=== PATIENT | male | born 1960 | race Caucasian/White ===

== ENCOUNTER 2016-04-29 10:21 | Outpatient (CLI) | payer BC ==
[~2016-04-29] VITALS: Ht 185.4 cm; Wt 112.0 kg
[2016-04-29 10:32] VITALS: BP 129/77
[2016-04-29] MEDS ORDERED: DILT240C53 PO (10:36)
[2016-04-29] MEDS ORDERED: ATOR20TA66 PO (10:36)
[2016-04-29 11:01] LABS: BASOPHILS % (AUTO) 0 % (0-10); EOSINOPHILS # (AUTO) 0.2 10^3/uL (0.0-0.3); EOSINOPHILS % (AUTO) 3 % (0-10); LYMPHOCYTES # (AUTO) 2.2 X 10^3 (1.0-4.0); LYMPHOCYTES % (AUTO) 37 % (12-44); MEAN CORPUSCULAR HEMOGLOBIN 34 PG (25-34); MEAN CORPUSCULAR HGB CONC 37 G/DL (32-36); MEAN CORPUSCULAR VOLUME 94 FL (80-99); MEAN PLATELET VOLUME 10.6 FL (7.4-10.4); MONOCYTES # (AUTO) 0.5 X 10^3 (0.0-1.0); MONOCYTES % (AUTO) 8 % (0-12); NEUTROPHILS # (AUTO) 3.1 X 10^3 (1.8-7.8); NEUTROPHILS % (AUTO) 52 % (42-75); PLATELET COUNT 151 10^3/uL (130-400); RED BLOOD COUNT 4.57 10^6/uL (4.35-5.85); RED CELL DISTRIBUTION WIDTH 11.6 % (10.0-14.5)
[2016-05-05] MEDS ORDERED: HYDR-3730 PO (13:30)
== END 2016-04-29 10:50 | disposition home or self-care (01) ==
LOC: PREOP 10:21
PROVIDERS: ATTEND Surgery Pediatric Surgery
DX: Z01.812 Encounter for preprocedural laboratory examination (principal); Z11.2 Encounter for screening for other bacterial diseases; K43.2 Incisional hernia without obstruction or gangrene
CPT/HCPCS: 36415; 85025; 87081

== ENCOUNTER 2016-05-05 08:18 | Day surgery (SDC) | payer BC ==
[~2016-05-05] VITALS: Ht 185.4 cm; Wt 112.0 kg
[~2016-05-05 08:18] MED LIST: ATOR20TA66 PO; DILT240C53 PO
--- OUTSIDE RECORDS SUMMARY | 2016-05-05 08:35 | XMS REPORT | Continuity of Care Document ---
Author Author Interface Organization Interface Address Unknown Phone Unavailable Problems Problem Status Onset Date Classification Date Reported Comments Source Medications Medication Details Route Status Patient Instructions Ordering Provider Order Date Source Allergies, Adverse Reactions, Alerts Substance Category Reaction Severity Reaction type Status Date Reported Comments Source Immunizations Immunization Date Given Site Status Last Updated Comments Source Results Order Name Results Value Reference Range Date Interpretation Comments Source Vital Signs Vital Sign Value Date Comments Source Encounters Location Location Details Encounter Type Encounter Number Reason For Visit Attending Provider ADM Date DC Date Status Source [facility] [id number] Outpatient [id number] Mary Ramos 03/28/2013 Active [facility] [id number] Outpatient [id number] Mary Ramos 04/06/2013 Active [facility], [facility] Procedures Procedure Code Date Perfomer Comments Source
[2016-05-05 08:40] VITALS: BP 139/84
[2016-05-05] MEDS ORDERED: morphine INJ 10 MG/ML 1ML (SYR OR VIAL) IV PRN (09:00)
[2016-05-05] MEDS ORDERED: ONDANSETRON 4 MG/2 ML (SDV) Z0FRAN IV PRN (09:00)
[2016-05-05] MEDS ORDERED: PROMETHAZINE INJ 25 MG/ML (PHENERGAN) AMP IV PRN (09:00)
[2016-05-05] MEDS ORDERED: MIDAZOLAM 2 MG/2 ML (VERSED) VIAL ONE (09:36)
[2016-05-05] MEDS ORDERED: fentaNYL INJECTION 100 MCG/2 ML AMP ONE ×3 (09:36→13:02)
[2016-05-05] MEDS ORDERED: NS (IVPB) 50 ML ONE (09:41)
[2016-05-05] MEDS ORDERED: ceFAZolin 1,000 MG (ANCEF) VIAL ONE (09:41)
[2016-05-05] MEDS ORDERED: ceFAZolin 1 GM/NS 50 ML IVPB IV ONE ×2 (09:45)
[2016-05-05] MEDS: LACTATED RINGERS 1,000 ML IV PRN ×3 (09:46→13:30)
[2016-05-05] MEDS ORDERED: BUP/EPI 0.5% 1:200,000 (SENSORCAINE) 30 ML VIAL ONE (09:50)
[2016-05-05] MEDS ORDERED: SEVOFLURANE (ULTANE) 15 ML INHAL SOLN ONE ×2 (10:28→13:34)
[2016-05-05] MEDS ORDERED: ROCURONIUM 50 MG/5 ML (ZEMURON) VIAL IV ONE (10:28)
[2016-05-05] MEDS ORDERED: ONDANSETRON 4 MG/2 ML (SDV) Z0FRAN ONE (10:28)
[2016-05-05] MEDS ORDERED: LACTATED RINGERS 1,000 ML IV ONE ×3 (10:28→13:34)
[2016-05-05] MEDS ORDERED: LIDOCAINE PF 2% 10 ML (XYLOCAINE) AMP ONE (10:28)
[2016-05-05] MEDS ORDERED: proPOfol 200 MG/20 ML (DIPRIVAN) VIAL IV ONE (10:28)
--- NOTE | 2016-05-05 13:26 | Progress Note-Pre Operative ---
Pre-Operative Progress Note H&P Reviewed The H&P was reviewed, patient examined and no changes noted. Date H&P Reviewed: May 05, 2016 Time H&P Reviewed: 11:00 Pre-Operative Diagnosis: ventral abdominal incisional hernia x3 ANTHONY SANDOVAL MD May 05, 2016 1:26 pm
--- NOTE | 2016-05-05 13:28 | Progress Note-Post Operative ---
Post-Operative Progess Note Pre-Operative Diagnosis ventral abdominal incisional hernia x3 Post-Operative Diagnosis same Post-Op Procedure Note Date of Procedure: May 05, 2016 Name of Procedure: ventral abdominal incisional hernia repair with mesh Anesthesia Type GET Estimated blood loss (mL): 150ml ANTHONY SANDOVAL MD May 05, 2016 1:28 pm
[2016-05-05] MEDS ORDERED: ACETAMINOPHEN 325 MG TABLET/CAPLET (TYLENOL) PO PRN (13:30)
[2016-05-05] MEDS ORDERED: morphine INJ 10 MG/ML 1ML (SYR OR VIAL) IVP PRN (13:30)
[2016-05-05] MEDS ORDERED: HYDROcodone/APAP 5 MG/325 MG (LORTAB) TAB PO ONE (13:30)
[2016-05-05] MEDS ORDERED: HYDR-3730 PO (13:30)
[2016-05-05] MEDS ORDERED: ONDANSETRON 4 MG/2 ML (SDV) Z0FRAN IVP PRN ×2 (13:30→14:00)
--- NOTE | 2016-05-05 13:30 | Discharge Inst-Surgical ---
D/C Lap Instructions-LORI New, Converted, or Re-Newed RX: RX on Chart Follow Up Appt in 2 weeks Activity as tolerated No driving for 24 hours No driving while on pain medications Incentive Spirometry use every 2 hours while awake Regular Diet Symptoms to Report: Fever over 101 degree F, Nausea/Vomiting Infection Signs and Symptoms to report: Increased redness, Foul odor of wound, Increased drainage Bathing instructions: May shower Operative Area Clean/Dry; Keep incision clean/dry If any problems/questions: Contact your physician or go to Emergency Room ANTHONY SANDOVAL MD May 05, 2016 1:30 pm
[2016-05-05] MEDS ORDERED: hydrALAZINE (APESOLINE) 20 MG/ML VIAL ONE (13:34)
[2016-05-05] MEDS: morphine INJ 10 MG/ML 1ML (SYR OR VIAL) IVP PRN ×2 (14:00→14:17)
[2016-05-05] MEDS ORDERED: MEPERIDINE (DEMEROL) INJ 50 MG/ML ONE (14:01)
[2016-05-05] MEDS: MEPERIDINE (DEMEROL) INJ 50 MG/ML IVP PRN ×2 (14:04→14:34)
[2016-05-05 14:55] VITALS: BP 151/84
[2016-05-05 15:25] VITALS: BP 154/91
[2016-05-05 16:35] VITALS: BP 152/91
[2016-05-05 16:50] VITALS: BP 152/91
[2016-05-05 17:10] VITALS: BP 152/91
--- NOTE | 2016-05-06 08:33 | OPERATIVE REPORT ---
PROCEDURE PHYSICIAN: ANTHONY DICKSON DATE OF PROCEDURE: 05/05/2016 ATTENDING PHYSICIAN: Dr. Gonzalez. PREOPERATIVE DIAGNOSIS: Ventral abdominal incisional hernias x3. POSTOPERATIVE DIAGNOSIS: Ventral abdominal incisional hernias x3. PROCEDURE: Open incisional hernia repair with mesh. SURGEON: Dr. Dickson. SUPPLY TECHNICIAN: Michael Tinoco APRN. ANESTHESIA: General endotracheal. ESTIMATED BLOOD LOSS: 150 mL. FINDINGS: 1. 3 hernias from a previous laparotomy incision which were all separate. 2. Thru a single incision all 3 hernias were connected and the repaired with mesh. DISPOSITION: The patient tolerated the procedure well. BRIEF HISTORY: Mr. Golden Martin is a 56-year-old male with pain and a bulge in the mid abdominal region, as well as the umbilicus. He reports that he has had this for approximately last 5 years. However, has grown larger over time and more painful. He has had an laparotomy incision in the for what he reports as an internal hernia or what he states is twisted intestines. Upon examination, he was found to have multiple symptomatic reducible abdominal incisional hernias. PROCEDURE: The patient was brought to the operating room, laid supine on the table. After adequate IV pain and sedative medications and conscious sedation anesthesia, the abdomen was prepped and draped as usual fashion. 0.5% Marcaine was then used to anesthetize the overlying skin supraumbilically. A crescent shaped skin incision then made using a 15 blade. The initial incisional hernia was in the area of the umbilicus which was dissected off of the umbilicus. We did this using electrocautery as well as Metzenbaum scissors. The hernia sac was then opened using Metzenbaum scissors and completely excised using electrocautery. There was only omentum in the hernia sac. At this time, and we are able to examine the abdomen from the peritoneal lining. Two other hernias were identified, one directly superior and one superolaterally. These hernias were connected using electrocautery. The entire defect now was approximately 5 cm in size. An area of good healthy fascia was then cleared off using electrocautery. A coated polypropylene mesh, which was 11.4 cm in diameter was then placed into the defect and transfacial sutures were placed in 4 quadrants. We then proceeded with 0 Prolene sutures concentrically around the fascial edges, as well as the mesh with 0 Prolene suture. Good hemostasis was observed. The umbilicus was then imbricated onto the fascia using 3-0 Vicryl interrupted sutures. The subcutaneous tissue was then reapproximated using 3-0 Vicryl interrupted sutures. Skin was closed using 4-0 Monocryl running subcuticular sutures. The wound was then cleaned and covered Dermabond. The umbilicus was then stuffed with tonsil sponges, followed by 4 x 4 gauze, followed by large OpSite. The patient tolerated the procedure well. We will start IV and oral pain medication as well as a clear liquid diet. Once he is tolerating clears, has good pain control with oral pain medications and ambulating well, we will discharge him home. He is to do no heavy lifting or exertion for the next 6 weeks. He also will be instructed to wear abdominal binder at all times for the next 2 weeks. Job ID: [id number] Dictated Date: 05/05/2016 13:37:24 Cushion Stuffer Date: 05/06/2016 08:25:53 / boubacar GARCIA
== END 2016-05-05 17:10 | disposition home or self-care (01) ==
LOC: SDC 08:18
PROVIDERS: ATTEND Surgery Pediatric Surgery
DX: K43.2 Incisional hernia without obstruction or gangrene (principal)
CPT/HCPCS: 88302; 94664

== ENCOUNTER 2016-08-25 10:16 | Outpatient (CLI) | payer BC ==
[~2016-08-25 10:16] MED LIST changes: +HYDR-3730 PO
[2016-08-25] MEDS ORDERED: HYDR12.5 PO (10:39)
== END 2016-08-25 10:50 | disposition home or self-care (01) ==
DX: Z01.812 Encounter for preprocedural laboratory examination (principal); Z11.2 Encounter for screening for other bacterial diseases; K40.90 Unilateral inguinal hernia, without obstruction or gangrene, not specified as recurrent

== ENCOUNTER 2016-09-01 10:15 | Day surgery (SDC) | payer BC ==
[~2016-09-01] VITALS: Ht 185.4 cm; Wt 109.3 kg
[~2016-09-01 10:15] MED LIST changes: +HYDR12.5 PO
--- OUTSIDE RECORDS SUMMARY | 2016-09-01 10:40 | XMS REPORT | Continuity of Care Document ---
Author Author [employer] Organization [facility] Address Unknown Phone Unavailable Care Team Providers Care Database Management Specialist Name Role Phone [employer] Unavailable Unavailable Problems Medications Allergies, Adverse Reactions, Alerts Immunizations Results Vital Signs Encounters Location Location Details Encounter Type Encounter Number Reason For Visit Attending Provider ADM Date DC Date Status Source [facility] [id number] Outpatient [id number] Mary Ramos 03/28/2013 Active [facility] [id number] Outpatient [id number] Mary Ramos 04/06/2013 Active [facility] Procedures Plan of Care Social History Assessment and Plan Family History Value Date Source Advance Directives Order Name Results Value Date Source
[2016-09-01 11:00] VITALS: BP 128/79
[2016-09-01] MEDS ORDERED: ceFAZolin 1 GM/NS 50 ML IVPB IV ONE ×2 (11:15)
[2016-09-01] MEDS ORDERED: BUP/EPI 0.5% 1:200,000 (MARCAINE) 10ML VIAL IJ ONE (11:44)
[2016-09-01] MEDS ORDERED: ONDANSETRON 4 MG/2 ML (SDV) Z0FRAN IV ONE (11:45)
[2016-09-01] MEDS ORDERED: FAMOTIDINE 20MG/2ML IV (PEPCID) IV ONE (11:45)
[2016-09-01] MEDS ORDERED: SCOPOLAMINE 1.5 MG (TRANSDERM-SCOP) PATCH TOP ONE (11:45)
--- NOTE | 2016-09-01 11:55 | Progress Note-Pre Operative ---
Pre-Operative Progress Note H&P Reviewed The H&P was reviewed, patient examined and no changes noted. Date Seen by Provider: Sep 01, 2016 Time Seen by Provider: 11: Date H&P Reviewed: Sep 01, 2016 Time H&P Reviewed: : Pre-Operative Diagnosis: right inguinal hernia, ventral abdominal incisional hernia ANTHONY SANDOVAL MD Sep 01, 2016 11:55 am
[2016-09-01] MEDS ORDERED: ACETAMINOPHEN 325 MG TABLET/CAPLET (TYLENOL) PO PRN (12:00)
[2016-09-01] MEDS ORDERED: ONDANSETRON 4 MG/2 ML (SDV) Z0FRAN IVP PRN ×2 (12:00→15:45)
[2016-09-01] MEDS ORDERED: proPOfol 200 MG/20 ML (DIPRIVAN) VIAL IV ONE (12:00)
[2016-09-01] MEDS ORDERED: MIDAZOLAM 2 MG/2 ML (VERSED) VIAL ONE (12:00)
[2016-09-01] MEDS ORDERED: fentaNYL INJECTION 100 MCG/2 ML AMP ONE ×2 (12:00→13:26)
[2016-09-01] MEDS ORDERED: HYDROcodone/APAP 5 MG/325 MG (LORTAB) TAB PO ONE (12:00)
[2016-09-01] MEDS ORDERED: morphine INJ 10 MG/ML 1ML (SYR OR VIAL) IVP PRN (12:00)
[2016-09-01] MEDS ORDERED: ROCURONIUM 50 MG/5 ML (ZEMURON) VIAL IV ONE ×2 (12:00→13:15)
[2016-09-01] MEDS: LACTATED RINGERS 1,000 ML IV PRN ×3 (12:09→14:19)
[2016-09-01] MEDS ORDERED: ONDANSETRON 4 MG/2 ML (SDV) Z0FRAN ONE (12:58)
[2016-09-01] MEDS ORDERED: DEXAMETHASONE PF 10 MG/ML (DECADRON) VIAL ONE (12:58)
[2016-09-01] MEDS ORDERED: SEVOFLURANE (ULTANE) 15 ML INHAL SOLN ONE ×9 (12:58→15:42)
[2016-09-01] MEDS ORDERED: LACTATED RINGERS 2,000 ML IV ONE (12:58)
[2016-09-01] MEDS ORDERED: PHENYLEPHRINE 100 MCG/ML 10 ML (ANESTHESIA) SYR ONE (14:22)
[2016-09-01] MEDS ORDERED: LACTATED RINGERS 1,000 ML IV ONE (14:48)
[2016-09-01] MEDS ORDERED: NEOSTIGMINE (BLOXIVERZ ) 1 MG/1ML 10 ML VIAL ONE (14:48)
[2016-09-01] MEDS ORDERED: GLYCOPYRROLATE 0.2 MG/ML (ROBINUL) 2 ML VIAL ONE (14:48)
--- NOTE | 2016-09-01 15:28 | Progress Note-Post Operative ---
Post-Operative Progess Note Surgeon (s)/Rcis (s) Surgeon ANTHONY SANDOVAL MD Rcis: le zaragoza APPLICATION COUNSELOR Pre-Operative Diagnosis right inguinal hernia, ventral abdominal incisional hernia Post-Operative Diagnosis right direct and indirect inguinal hernia, recurrent ventral abdominal incisional hernia(3cm). Procedure & Operative Findings Date of Procedure 09/01/16 Procedure Performed/Findings laparoscopic right inguinal hernia repair with mesh. open recurrent ventral abdominal incisional hernia repair with mesh. Anesthesia Type GET Estimated Blood Loss Estimated blood loss (mL): 750ml Specimens/Packing Specimens Removed none ANTHONY SANDOVAL MD Sep 01, 2016 3:28 pm
[2016-09-01] MEDS ORDERED: HYDR-3816 PO (15:31)
--- NOTE | 2016-09-01 15:32 | Discharge Inst-Surgical ---
D/C Lap Instructions-LORI New, Converted, or Re-Newed RX: RX on Chart Follow Up Appt in 2 weeks Activity as tolerated No driving for 24 hours No driving while on pain medications Incentive Spirometry use every 2 hours while awake Regular Diet Symptoms to Report: Fever over 101 degree F, Nausea/Vomiting Infection Signs and Symptoms to report: Increased redness, Foul odor of wound, Increased drainage Bathing instructions: May shower Operative Area Clean/Dry; Keep incision clean/dry If any problems/questions: Contact your physician or go to Emergency Room ANTHONY SANDOVAL MD Sep 01, 2016 3:32 pm
[2016-09-01] MEDS: morphine INJ 10 MG/ML 1ML (SYR OR VIAL) IVP PRN ×2 (15:40→15:46)
[2016-09-01] MEDS ORDERED: PROMETHAZINE INJ 25 MG/ML (PHENERGAN) AMP IVP PRN (15:45)
[2016-09-01] MEDS ORDERED: MEPERIDINE (DEMEROL) INJ 50 MG/ML IVP PRN (15:45)
[2016-09-01] MEDS ORDERED: HYDROmorphone (DILAUDID) 2 MG/ML VIAL IVP PRN (15:45)
[2016-09-01 16:30] VITALS: BP 105/80
[2016-09-01 17:00] VITALS: BP 91/66
[2016-09-01 17:30] VITALS: BP 100/73
[2016-09-01 18:00] VITALS: BP 100/73
== END 2016-09-01 18:00 | disposition home or self-care (01) ==
LOC: SDC 10:15
PROVIDERS: ATTEND Surgery
DX: K40.90 Unilateral inguinal hernia, without obstruction or gangrene, not specified as recurrent (principal); K43.2 Incisional hernia without obstruction or gangrene; I10 Essential (primary) hypertension; E78.5 Hyperlipidemia, unspecified; Z79.899 Other long term (current) drug therapy
CPT/HCPCS: 94664

== ENCOUNTER → 2016-10-07 | Outpatient (CLI) | payer BC ==
[~2016-10-07] MED LIST changes: +HYDR-3816 PO
--- NOTE | 2016-10-07 12:11 | Diagnostic Imaging Report ---
Indication: Right scrotal swelling with palpable lump. Comparison: None. Discussion: Sonographic evaluation of the scrotum was performed. Images were assessed for grayscale appearance and color Doppler blood flow. The testicles appear normal and symmetric in echotexture and size bilaterally with normal color Doppler blood flow. The right testicle measures 4.1 x 2.2 x 3.0 cm. The left testicle measures 4.1 x 2.5 x 2.2 cm. Moderate right hydrocele is noted. The epididymides are unremarkable. There is a heterogenous mass extending along the inguinal canal into the superior right scrotum which is concerning for an inguinal hernia with indeterminate contents, mesenteric fat versus bowel. No peristalsing bowel is identified. CT could be performed for further evaluation as clinically indicated. Impression: 1. Right inguinal hernia. 2. Moderate right hydrocele. Dictated by: Dictated on workstation # [id number]
== END ==
LOC: RAD 11:10
PROVIDERS: ATTEND Surgery
DX: K40.90 Unilateral inguinal hernia, without obstruction or gangrene, not specified as recurrent (principal); N43.3 Hydrocele, unspecified
CPT/HCPCS: 76870

== ENCOUNTER → 2016-11-10 | Outpatient (CLI) | payer BC ==
[~2016-11-10] MED LIST changes: +BARIUM SUSPENSION 2.1% (VANILLA SILQ) 450 ML PO ONE; +CATHETER FLUSH 10 ML SYR IV PRN; +IOHEXOL 350 MG/ML 100 ML (OMNIPAQUE 350) VIAL IV ONE
--- NOTE | 2016-11-10 14:07 | Diagnostic Imaging Report ---
PROCEDURE: CT pelvis with contrast. TECHNIQUE: Oral and intravenous contrast were administered with pelvic CT performed. INDICATION: Inguinal hernia. FINDINGS: There are no previous CT examinations available for comparison. By history, the patient has had a repair of an inguinal hernia on the right in August of this year. The scrotal ultrasound exam performed on 10/07/2016 noted a heterogeneous mass extending into the inguinal canal and into the superior right scrotum. This was felt to be worrisome for an inguinal hernia. On this exam however, there is no sign of extension of the large or small bowel into the right inguinal canal. There is an area of mixed density within the inguinal canal extending to the superior margin of the scrotum. This area measures 2.0 x 2.9 x 4.4 cm in maximum transverse, AP, and longitudinal dimensions. This may well correspond to the heterogeneous mass seen in the inguinal canal on the ultrasound exam. This could be secondary to scar or hematoma formation. The large hydrocele involving the right scrotum seen previously is again evident. The testicles themselves are unremarkable. The sections through the abdomen do show that there is thinning of the anterior abdominal wall in the region of the umbilicus. There is also some distortion of the subcutaneous and mesenteric fat in this area. There is no sign of bowel obstruction but the distortion of the subcutaneous and mesenteric fat in this area does suggest that there may be an element of edema/inflammation present. There is no mass or abscess visualized. There is no acute abnormality of the abdomen or pelvis noted, otherwise. The urinary bladder is grossly unremarkable. The prostate gland is mildly enlarged measuring 5.5 cm in maximum transverse diameter (normal 5 cm or less). No sign of acute diverticulitis. The appendix was not particularly well visualized but there are no indirect signs of acute appendicitis. The bone windows show no evidence for fracture or for destructive lesion. IMPRESSION: 1. There is no evidence for herniation of the bowel into the inguinal canal. There is a roughly 2 x 3 x 4 cm area of mixed density within the inguinal canal. This would correspond to the finding of the ultrasound exam and could be secondary to scar and/or hematoma formation. 2. The large hydrocele on the right seen on the recent ultrasound exam is again evident and no different. 3. There is distortion of the subcutaneous and mesenteric fat about the umbilicus and this does suggest that there is an element of edema/inflammation present, but there is no sign of an abscess. There does appear to be an umbilical hernia in this region. There is no incarceration or obstruction of the bowel in this area, however. 4. The prostate gland is enlarged. Dictated by: Dictated on workstation # [id number]
== END ==
LOC: RAD 12:27
PROVIDERS: ATTEND Urology
DX: N43.3 Hydrocele, unspecified (principal); N40.0 Benign prostatic hyperplasia without lower urinary tract symptoms
CPT/HCPCS: 72193

== ENCOUNTER 2016-12-02 05:30 | Outpatient (CLI) | payer BC ==
[~2016-12-02] VITALS: Ht 185.4 cm; Wt 107.0 kg
[~2016-12-02 05:30] MED LIST changes: -BARIUM SUSPENSION 2.1% (VANILLA SILQ) 450 ML PO ONE; -CATHETER FLUSH 10 ML SYR IV PRN; -IOHEXOL 350 MG/ML 100 ML (OMNIPAQUE 350) VIAL IV ONE
== END 2016-12-02 10:26 ==
LOC: PREOP 05:30
PROVIDERS: ATTEND Urology
DX: Z01.818 Encounter for other preprocedural examination (principal); N43.3 Hydrocele, unspecified

== ENCOUNTER 2016-12-07 06:35 | Day surgery (SDC) | payer BC ==
[~2016-12-07] VITALS: Ht 185.4 cm; Wt 107.0 kg
--- OUTSIDE RECORDS SUMMARY | 2016-12-07 06:39 | XMS REPORT | Continuity of Care Document ---
Author Author [employer] Organization [facility] Address Unknown Phone Unavailable Care Team Providers Care Back Order Clerk Name Role Phone [employer] Unavailable Unavailable Problems Medications Allergies, Adverse Reactions, Alerts Immunizations Results Vital Signs Encounters Location Location Details Encounter Type Encounter Number Reason For Visit Attending Provider ADM Date DC Date Status Source [facility] [id number] Outpatient [id number] Mary Ramos 03/28/2013 Active [facility] [id number] Outpatient [id number] Mary Ramos 04/06/2013 Active [facility] Procedures Plan of Care Social History Assessment and Plan Family History Value Date Source Advance Directives Order Name Results Value Date Source
[2016-12-07] MEDS ORDERED: NS (IVPB) 50 ML ONE (06:48)
[2016-12-07] MEDS ORDERED: ceFAZolin 1,000 MG (ANCEF) VIAL ONE (06:48)
[2016-12-07] MEDS ORDERED: FAMOTIDINE 20MG/2ML IV (PEPCID) ONE (06:51)
[2016-12-07] MEDS ORDERED: SCOPOLAMINE 1.5 MG (TRANSDERM-SCOP) PATCH ONE (06:51)
[2016-12-07] MEDS ORDERED: ONDANSETRON 4 MG/2 ML (SDV) Z0FRAN ONE ×2 (06:51→07:01)
[2016-12-07] MEDS ORDERED: LACTATED RINGERS 1,000 ML IV PRN (06:58)
[2016-12-07] MEDS ORDERED: SCOPOLAMINE 1.5 MG (TRANSDERM-SCOP) PATCH TOP ONE (07:00)
[2016-12-07] MEDS ORDERED: ONDANSETRON 4 MG/2 ML (SDV) Z0FRAN IV ONE (07:00)
[2016-12-07] MEDS ORDERED: FAMOTIDINE 20MG/2ML IV (PEPCID) IV ONE (07:00)
[2016-12-07] MEDS ORDERED: SEVOFLURANE (ULTANE) 15 ML INHAL SOLN ONE ×3 (07:01→08:18)
[2016-12-07] MEDS ORDERED: proPOfol 200 MG/20 ML (DIPRIVAN) VIAL IV ONE (07:01)
[2016-12-07] MEDS ORDERED: MIDAZOLAM 2 MG/2 ML (VERSED) VIAL ONE (07:01)
[2016-12-07] MEDS ORDERED: LIDOCAINE PF 2% 5 ML (XYLOCAINE) VIAL ONE (07:01)
[2016-12-07] MEDS ORDERED: LACTATED RINGERS 1,000 ML IV ONE (07:01)
[2016-12-07] MEDS ORDERED: fentaNYL INJECTION 100 MCG/2 ML AMP ONE (07:01)
[2016-12-07] MEDS ORDERED: DEXAMETHASONE 10 MG/ML (DECADRON) 1 ML VIAL ONE (07:01)
--- NOTE | 2016-12-07 07:05 | Progress Note-Pre Operative ---
Pre-Operative Progress Note H&P Reviewed The H&P was reviewed, patient examined and no changes noted. Date Seen by Provider: Dec 07, 2016 Time Seen by Provider: 07:04 Date H&P Reviewed: Dec 07, 2016 Time H&P Reviewed: 07:05 Pre-Operative Diagnosis: RT HYDROCELE OKSANA VALLES MD Dec 07, 2016 7:05 am
--- NOTE | 2016-12-07 07:06 | Progress Note-Post Operative ---
Post-Operative Progess Note Surgeon (s)/Talent Acquisition Assistant (s) Surgeon OKSANA VALLES MD Talent Acquisition Assistant: N/A Pre-Operative Diagnosis RT HYDROCELE Post-Operative Diagnosis SAME Procedure & Operative Findings Date of Procedure 12/07/16 Procedure Performed/Findings RT HYDROCELECTOMY Anesthesia Type GENERAL Estimated Blood Loss Estimated blood loss (mL): NEGLIGIBLE Specimens/Packing Specimens Removed HYDROCELE SAC Packin/4 JOCELYN DRAIN OKSANA VALLES MD Dec 07, 2016 7:06 am
--- NOTE | 2016-12-07 07:08 | Discharge Inst-Urology ---
Discharge Inst-Urology Discharge Medications New, Converted, or Re-newed RX: RX on Chart Patient Instructions/Follow Up Plan Please make appointment to been seen in office in 2 weeks, Rest till then and keep scrotal support on. Ice to scrotum in RR and at home till am tomorrow. Come to office tomorrow 9am to DC drain, start showers after that, no bath Keep bowels soft and moving Increase oral fluids for 48 hours and then as needed. Diet and Activity as tolerated. If questions or concerns contact your physician Or seek help at emergency department. OKSANA VALLES MD Dec 07, 2016 7:08 am
[2016-12-07 07:11] VITALS: BP 130/93
[2016-12-07] MEDS ORDERED: CATHETER FLUSH 10 ML SYR IV PRN (07:15)
[2016-12-07] MEDS ORDERED: ceFAZolin 1 GM/NS 50 ML IVPB IV ONE ×2 (07:15)
[2016-12-07] MEDS ORDERED: morphine INJ 4 MG/ML 1 ML (VIAL/SYRINGE) ONE (08:52)
[2016-12-07] MEDS ORDERED: morphine INJ 10 MG/ML 1ML (SYR OR VIAL) IVP PRN (09:00)
[2016-12-07] MEDS ORDERED: ONDANSETRON 4 MG/2 ML (SDV) Z0FRAN IVP PRN (09:00)
[2016-12-07] MEDS ORDERED: HYDROcodone/APAP 7.5 MG/325 MG (LORTAB, LORCET PLUS) TABLET PO ONE (09:27)
[2016-12-07 09:30] VITALS: BP 148/81
[2016-12-07 09:45] VITALS: BP 156/87
[2016-12-07 10:00] VITALS: BP 155/86
[2016-12-07] MEDS ORDERED: HYDROcodone/APAP 7.5 MG/325 MG (LORTAB, LORCET PLUS) TABLET PO PRN (10:00)
[2016-12-07] MEDS ORDERED: CEPH-507 PO (10:35)
[2016-12-07] MEDS ORDERED: HYDR-3875 PO (10:35)
[2016-12-07 11:00] VITALS: BP 155/86
[2016-12-07 11:15] VITALS: BP 155/86
--- NOTE | 2016-12-08 04:13 | OPERATIVE REPORT ---
DATE OF SERVICE: 12/07/2016 PREOPERATIVE DIAGNOSIS: Right hydrocele. POSTOPERATIVE DIAGNOSIS: Right hydrocele. OPERATION PERFORMED: Right hydrocelectomy. SURGEON: Ruben Valles MD. ANESTHESIA: General. COMPLICATIONS: None. PROCEDURE: Under satisfactory general anesthesia, the patient was in supine position. Abdomen, genitalia and thigh were prepped and draped in the usual sterile fashion. An incision was made in the median raphe and carried through the layer of the left scrotum. A large amount of fluid was suctioned. The testicle and epididymis were delivered and were found normal. The excess hydrocele sac was sharply excised. The edges of the sac were sutured with a running hemostatic 3-0 chromic catgut suture and then the sac was reverted behind the cord with couple of sutures to further prevent recurrence. The hemostasis was complete as bleeders were cauterized as procedure was proceeding. The testicle and epididymis were put back into the scrotum which was drained with a separate stab wound in the bottom of the incision using a 1/4 inch [place] drain secured in position with 3-0 chromic catgut suture. Closure was performed in layer, the dartos with running 3-0 chromic catgut and the skin with interrupted 4-0 Vicryl. Fluff, scrotal support and dressing were applied. The patient tolerated procedure and anesthesia well and was sent to the recovery room in stable condition. Instructions were given to the . Job ID: [id number] DocumentID: [id number] Dictated Date: 12/07/2016 08:30:59 Associate Partner Date: 12/07/2016 14:12:51 Dictated By: RUBEN VALLES MD
== END 2016-12-07 11:15 | disposition home or self-care (01) ==
LOC: SDC 06:35
PROVIDERS: ATTEND Urology
DX: F32.9 Major depressive disorder, single episode, unspecified; K21.9 Gastro-esophageal reflux disease without esophagitis; Z11.2 Encounter for screening for other bacterial diseases; N43.3 Hydrocele, unspecified; Z79.899 Other long term (current) drug therapy; E78.5 Hyperlipidemia, unspecified; I10 Essential (primary) hypertension
CPT/HCPCS: 87081

== ENCOUNTER → 2020-11-16 | Outpatient (CLI) | payer OTHER ==
[~2020-11-16] MED LIST changes: +CEPH-507 PO; +HYDR-34 PO; -HYDR-3816 PO; +HYDR-3875 PO
--- NOTE | 2020-11-16 09:55 | Diagnostic Imaging Report ---
INDICATION: Right knee pain AP, oblique and lateral views of the right knee reveal mild narrowing of medial knee joint compartment. No fractures identified. There may be a small amount of joint fluid. No lytic or sclerotic focus is identified. 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 There may be small amount of joint fluid without other evidence of acute abnormality. Dictated by: Dictated on workstation # [id number]
--- NOTE | 2020-11-16 10:09 | Diagnostic Imaging Report ---
INDICATION: Left foot pain AP, oblique and lateral views of the left foot are obtained. No acute fracture or malalignment is identified. There is narrowing of the 1st metacarpal phalangeal joint with mild flattening of the articular surfaces and mild marginal spurring. Otherwise no lytic or sclerotic focus is identified. There is no radiopaque foreign object. IMPRESSION: Degenerative findings at the 1st metatarsal-phalangeal joint without other acute abnormality identified. Dictated by: Dictated on workstation # [id number]
== END ==
LOC: RAD FS 09:21
PROVIDERS: ATTEND Nurse Practitioner
DX: M17.11 Unilateral primary osteoarthritis, right knee (principal); M19.072 Primary osteoarthritis, left ankle and foot
CPT/HCPCS: 73562; 73630